=== PATIENT | female | born 1965 | race African-American/Black ===

== ENCOUNTER 2018-09-11 21:07 | Emergency (ER) | payer SELFPAY ==
[~2018-09-11] VITALS: Ht 170.2 cm; Wt 77.0 kg
[2018-09-11] MEDS ORDERED: KETOROLAC 60MG/2ML VIAL IM ONE (22:30)
[2018-09-11 23:17] VITALS: BP 145/89
== END 2018-09-11 23:17 | disposition home or self-care (01) ==
LOC: ER 21:07
DX: S60.222A Contusion of left hand, initial encounter (principal); S09.8XXA Other specified injuries of head, initial encounter; E11.9 Type 2 diabetes mellitus without complications; E78.00 Pure hypercholesterolemia, unspecified; I10 Essential (primary) hypertension; F12.10 Cannabis abuse, uncomplicated; Y08.89XA Assault by other specified means, initial encounter; Y93.89 Activity, other specified; Y92.89 Other specified places as the place of occurrence of the external cause; Y99.8 Other external cause status
CPT/HCPCS: 73130; 99283

== ENCOUNTER 2020-08-28 23:51 | Emergency (ER) | payer MEDICAID ==
[~2020-08-28] VITALS: Ht 165.1 cm; Wt 76.0 kg
[2020-08-29] MEDS ORDERED: HYDROCODONE/ACETAMINOPHEN 5/325MG TABLET PO ONE (01:30)
[2020-08-29] MEDS ORDERED: LIDOCAINE HCL/PF 1% 10 MG/ML 5ML VIAL IJ ONE (01:30)
[2020-08-29] MEDS ORDERED: T3 PO (02:13)
[2020-08-29] MEDS ORDERED: IBUP-2029 MT (02:13)
[2020-08-29] MEDS ORDERED: HYDR-4346 MT (02:41)
[2020-08-29 03:04] VITALS: BP 118/75
== END 2020-08-29 03:06 | disposition home or self-care (01) ==
LOC: ER 23:51
DX: S63.275A Dislocation of unspecified interphalangeal joint of left ring finger, initial encounter (principal); T14.90XA Injury, unspecified, initial encounter; E78.00 Pure hypercholesterolemia, unspecified; I10 Essential (primary) hypertension; E11.9 Type 2 diabetes mellitus without complications; F12.10 Cannabis abuse, uncomplicated; Y04.0XXA Assault by unarmed brawl or fight, initial encounter; Y07.03 Male partner, perpetrator of maltreatment and neglect; Y93.89 Activity, other specified; Y92.89 Other specified places as the place of occurrence of the external cause; Y99.8 Other external cause status
CPT/HCPCS: 29130; 73130; 99283; J3490; Z7610